=== PATIENT | male | born 1990 | race Hispanic/Latino ===

== ENCOUNTER 2019-01-05 14:23 | Observation (INO) | payer SELFPAY ==
[2019-01-05] VITALS (7 sets, daily range): BP systolic 119–135; BP diastolic 54–72
[~2019-01-05] VITALS: Ht 165.1 cm; Wt 70.0 kg
[~2019-01-05 14:23] MED LIST: NAPROSYN500 MG OR
[2019-01-05 15:02] LABS: HEMATOCRIT 40.5 % (39.0-50.0); HEMOGLOBIN 14.5 g/dl (14.0-18.0); IMMATURE GRANULOCYTES 0.2 % (0.0-5.0); MEAN CORPUSCULAR HGB 32.6 pG CALC (26.0-32.0); MEAN CORPUSCULAR HGB CONC 35.8 g/L CALC (32.0-36.0); NEUT# 3.41 thou/uL (1.82-7.42); RED BLOOD COUNT 4.45 mill/uL (4.70-6.10); RED CELL DISTRI WIDTH 11.4 % (11.5-15.5)
[2019-01-05 15:14] LABS: ALBUMIN 4.5 g/dL (3.2-5.0); ALKALINE PHOSPHATASE 116 u/l (38-126); ANION GAP 21 (6-22 (CALC)); BILIRUBIN, TOTAL 0.7 mg/dL (0.0-1.4); BUN 16 mg/dL (9-20); BUN/CREATININE RATIO 21 (12-20 (CALC)); CARBON DIOXIDE 27 mmol/l (22-30); CHLORIDE 87 mmol/l (95-108); CREATININE 0.8 mg/dL (0.7-1.3); GFR > 60 ML/MIN (>=60 (CALC)); GFR FOR AFR.AMER. > 60 ML/MIN (>=60 (CALC)); POTASSIUM 4.7 mmol/l (3.5-5.1); SGOT/AST 31 u/l (17-59); SODIUM 130 mmol/l (137-146); TOTAL PROTEIN 7.5 g/dL (6.3-8.2)
[2019-01-05 16:06] LABS: URINE BILIRUBIN - DIPSTICK NEGATIVE (NEGATIVE); URINE BLOOD DIPSTICK NEGATIVE (NEGATIVE); URINE COLOR YELLOW; URINE GLUCOSE - DIPSTICK >=1000 mg/dL (NEGATIVE); URINE KETONE 15 mg/dL (NEGATIVE); URINE LEUK ESTERASE NEGATIVE (Negative); URINE NITRITE - DIPSTICK NEGATIVE (Negative); URINE PH 5.5 (4.5-8.0); URINE PROTEIN - DIPSTICK NEGATIVE (NEG-TRACE); URINE SPECIFIC GRAVITY <=1.005; URINE UROBILINOGEN - DIPSTICK 0.2 E.U./dL (0.2)
[2019-01-05 16:09] LABS: URINE CLARITY CLEAR
[2019-01-05 18:29] LABS: ALBUMIN 3.9 g/dL (3.2-5.0); ALKALINE PHOSPHATASE 90 u/l (38-126); BUN 16 mg/dL (9-20); BUN/CREATININE RATIO 30 (12-20 (CALC)); CARBON DIOXIDE 23 mmol/l (22-30); CREATININE 0.5 mg/dL (0.7-1.3); GFR > 60 ML/MIN (>=60 (CALC)); GFR FOR AFR.AMER. > 60 ML/MIN (>=60 (CALC)); SGOT/AST 22 u/l (17-59); TOTAL PROTEIN 6.8 g/dL (6.3-8.2)
[2019-01-05 18:30] LABS: ANION GAP 16 (6-22 (CALC)); BILIRUBIN, TOTAL 0.4 mg/dL (0.0-1.4); CHLORIDE 103 mmol/l (95-108); POTASSIUM 3.7 mmol/l (3.5-5.1); SODIUM 138 mmol/l (137-146)
[2019-01-06 00:05] VITALS: BP 103/57
[2019-01-06 02:00] VITALS: BP 100/61
[2019-01-06 03:59] LABS: HEMATOCRIT 36.9 % (39.0-50.0); HEMOGLOBIN 12.6 g/dl (14.0-18.0); IMMATURE GRANULOCYTES 0.4 % (0.0-5.0); MEAN CELL VOLUME 92.9 fL CALC (80.0-100.0); MEAN CORPUSCULAR HGB 31.7 pG CALC (26.0-32.0); MEAN CORPUSCULAR HGB CONC 34.1 g/L CALC (32.0-36.0); NEUT# 1.53 thou/uL (1.82-7.42); RED BLOOD COUNT 3.97 mill/uL (4.70-6.10); RED CELL DISTRI WIDTH 11.8 % (11.5-15.5)
[2019-01-06 04:02] VITALS: BP 112/57
[2019-01-06 04:29] LABS: ALBUMIN 3.3 g/dL (3.2-5.0); ALKALINE PHOSPHATASE 65 u/l (38-126); AMYLASE 40 u/l (30-110); BILIRUBIN, TOTAL 0.3 mg/dL (0.0-1.4); BUN 14 mg/dL (9-20); BUN/CREATININE RATIO 29 (12-20 (CALC)); CHLORIDE 104 mmol/l (95-108); CREATININE 0.5 mg/dL (0.7-1.3); GFR > 60 ML/MIN (>=60 (CALC)); GFR FOR AFR.AMER. > 60 ML/MIN (>=60 (CALC)); LIPASE 123 u/l (23-300); MAGNESIUM 1.8 mg/dL (1.6-2.3); POTASSIUM 3.6 mmol/l (3.5-5.1); SGOT/AST 23 u/l (17-59); SODIUM 140 mmol/l (137-146); TOTAL PROTEIN 6.1 g/dL (6.3-8.2)
[2019-01-06 04:35] LABS: ANION GAP 12 (6-22 (CALC)); CARBON DIOXIDE 28 mmol/l (22-30)
[2019-01-06 06:08] VITALS: BP 113/68
[2019-01-06 08:00] VITALS: BP 106/62
[2019-01-06] MEDS ORDERED: METFORMIN500 MG PO (10:37)
== END 2019-01-06 11:19 | disposition home or self-care (01) | DRG 639 ==
LOC: ED 14:23 → ED-I 15:28 → ED 15:54 → ICU 15:55
PROVIDERS: Emergency Medicine; Internal Medicine; ADMIT Internal Medicine Nephrology; ATTEND Internal Medicine Nephrology
DX: E11.65 Type 2 diabetes mellitus with hyperglycemia (principal); D64.9 Anemia, unspecified
CPT/HCPCS: J1650